=== PATIENT | male | born 1995 | race African-American/Black ===

== ENCOUNTER 2017-04-09 10:25 | Emergency (ER) | payer OTHER ==
[~2017-04-09] VITALS: Ht 185.4 cm; Wt 80.2 kg
[2017-04-09 10:29] VITALS: TEMP 36.8; Ht 185.4 cm; Wt 80.2 kg
--- NOTE | 2017-04-09 11:15 | DIAGNOSTIC IMAGING REPORT ---
RIGHT TIBIA/FIBULA 2 VIEWS ROUTINE CLINICAL HISTORY: pain over right fibula Right pain COMPARISON: None. DISCUSSION: The bones and joint spaces appear intact. There is no evidence of fracture, dislocation or bony disease. There is no evidence for soft tissue swelling. IMPRESSION: Negative study. The above report was generated using voice recognition software. It may contain grammatical, syntax or spelling errors. Electronically signed by: Speedy Boss M.D. 04/09/2017 11:14 AM Dictated Date/Time: 04/09/2017 11:13 AM
--- NOTE | 2017-04-09 11:38 | EMERGENCY ROOM VISIT NOTE ---
ED Visit Note First contact with patient: 10:43 CHIEF COMPLAINT: Right lower Leg injury HISTORY OF PRESENT ILLNESS: This 21-year-old male presents the ER with chief complaint of right lower leg pain and injury. The patient states 2 weeks ago he was playing basketball and felt pain in the lateral aspect of his right lower leg. He states after that whenever he would play basketball it was painful in the same area. He then decided to rest it for week. He went back and played again on Sunday and when he jumped up and came down he felt pain in the same area. The patient states it is now painful to bear weight. The patient denies any numbness and tingling in his toes. The patient denies any prior injury to his leg. REVIEW OF SYSTEMS: 6 system review was performed and was negative unless stated otherwise in history of present illness. PMH: No significant prior leg injury. Healthy with no chronic diseases or history of major trauma or surgery. SOCIAL HISTORY: Patient is a [employer] student. The patient denies any tobacco or alcohol use. PHYSICAL EXAM: Vital Signs: Were reviewed Reviewed Nurse's notes. GEN.: 21-year -old male appears in no acute distress. MENTAL STATUS: Alert, oriented, and cooperative. RIGHT LOWER LEG: No gross bony deformity noted. No erythema or edema noted. The patient is tender to palpation over the mid lateral aspect. Full range of motion of the knee. Negative Homans bilaterally. EMERGENCY DEPARTMENT COURSE: The patient was evaluated. X-ray of the right lower leg was ordered and interpreted the radiologist and myself. DIAGNOSTICS:RIGHT TIBIA/FIBULA 2 VIEWS ROUTINE CLINICAL HISTORY: pain over right fibula Right pain COMPARISON: None. DISCUSSION: The bones and joint spaces appear intact. There is no evidence of fracture, dislocation or bony disease. There is no evidence for soft tissue swelling. IMPRESSION: Negative study. The above report was generated using voice recognition software. It may contain grammatical, syntax or spelling errors. Electronically signed by: Speedy Boss M.D. 04/09/2017 11:14 AM Dictated Date/Time: 04/09/2017 11:13 AM The patient was informed of the findings. The patient was given crutches. The patient was discharged home in stable condition. DIAGNOSIS: Right lower leg pain DISCHARGE INSTRUCTIONS: Use crutches as needed to aid in ambulation. Ibuprofen 600 mg every 6 hours with food for pain. Avoid any strenuous exercise for 2 weeks. If symptoms are not improving recommend follow-up with [facility] for referral to orthopedics. Current/Historical Medications No Active Prescriptions or Reported Meds Allergies Coded Allergies: No Known Allergies (Unverified , 04/09/17) Vital Signs Date Time Temp Pulse Resp B/P (MAP) Pulse Ox O2 Delivery O2 Flow Rate FiO2 04/09/17 10:29 36.8 61 18 126/75 98 Room Air Departure Information Prescriptions No Active Prescriptions or Reported Meds Referrals No Doctor, Assigned (PCP) Patient Instructions [facility]
[2017-04-09 11:52] VITALS: BP 126/80; PULSE 64; O2SAT 100
== END 2017-04-09 11:53 | disposition home or self-care (01) ==
LOC: C.EDB 10:27 → C.EDD 11:53
DX: M79.661 Pain in right lower leg (principal)